=== PATIENT | female | born 1960 | race Caucasian/White ===

== ENCOUNTER 2018-10-15 08:46 | Day surgery (SDC) | payer BC ==
[2018-10-15] MEDS ORDERED: PROPOFOL 10 MG/ML VIAL IV ONE (08:47)
[2018-10-15] MEDS ORDERED: MIDAZOLAM HCL 2MG/2ML VIAL IV ONE (08:47)
[2018-10-15] MEDS ORDERED: PHENYLEPHRINE HCL 10% OPTH BTL OPTH ONE (08:47)
[2018-10-15] MEDS ORDERED: LIDOCAINE 2% MDV (20MG/ML) 20ML VIAL IV ONE ×2 (08:47)
[2018-10-15] MEDS ORDERED: EPINEPHRINE 1 MG/ML AMPUL SQ ONE (08:47)
[2018-10-15] MEDS ORDERED: TETRACAINE HCL 0.5% 15 ML OPTH BTL OPTH ONE (08:47)
[2018-10-15] MEDS ORDERED: TROPICAMIDE 1% 15ML BTL OP ONE (08:47)
[2018-10-15] MEDS ORDERED: KETOROLAC 0.5% OPTH ONE (08:47)
[2018-10-15] MEDS ORDERED: CIPROFLOXACIN HCL 0.3% OP ONE (08:47)
[2018-10-15] MEDS ORDERED: NEOMYCIN/POLY./DEXAM OPTH OINT OPTH ONE (08:47)
[2018-10-15] MEDS ORDERED: OPTH OPTH ONE (08:47)
--- NOTE | 2018-10-17 12:28 | OP NOTE CHAMES ---
DATE OF PROCEDURE: 10/15/2018. PREOPERATIVE DIAGNOSIS: Nuclear sclerotic and cortical cataract, left eye. POSTOPERATIVE DIAGNOSIS: Nuclear sclerotic and cortical cataract, left eye. OPERATION: Phacoemulsification of cataractous lens with implantation of intraocular lens. LENS IMPLANT USED: Shaq & Shaq Model PCB00 + 22.0 diopters. COMPLICATIONS: None. PROCEDURE IN DETAIL: Following a retrobulbar and facial block, the patient was prepped and draped in the usual fashion for eye surgery. A lid speculum was placed in the left eye after which a 2.4 mm tunnel wound was placed at the temporal limbus and dissected into clear cornea. A paracentesis was placed at 2 oclock hours to the left and right of the initial incision and the chamber deepened with Viscoelastic. The keratome was then used to enter the anterior chamber after which the continuous circular capsulorrhexis was accomplished without difficulty using a bent needle and a Utrata forceps. Hydrodissection and hydrodelineation of the lens was performed after which the nucleus of the lens was removed using the Phaco handpiece in the [id number] technique. The residual cortical material was irrigated and aspirated from the eye after which the bag and chamber were re-examined. The bag was re-inflated with Viscoelastic and the intraocular lens injected into the capsular bag where it centered well. The Viscoelastic was then copiously irrigated and aspirated from the eye after which the temporal tunnel wound and paracentesis were hydrated and the wounds were examined. They were noted to be watertight. The lid speculum was removed from the eye and the eye patched and shielded. The patient was transferred to the recovery room in satisfactory condition and given an appointment to be reexamined in the clinic later today or as directed by Dr. Hyatt. JOB NUMBER: [id number] [facility]
== END 2018-10-15 11:05 | disposition home or self-care (01) ==
LOC: SUR 08:46
PROVIDERS: ATTEND Ophthalmology
DX: H25.12 Age-related nuclear cataract, left eye (principal)
CPT/HCPCS: J0171

== ENCOUNTER 2018-10-29 07:05 | Day surgery (SDC) | payer BC ==
[2018-10-29] MEDS ORDERED: TETRACAINE HCL 0.5% 15 ML OPTH BTL OPTH ONE (07:06)
[2018-10-29] MEDS ORDERED: LIDOCAINE 2% MDV (20MG/ML) 20ML VIAL IV ONE ×2 (07:06)
[2018-10-29] MEDS ORDERED: NEOMYCIN/POLY./DEXAM OPTH OINT OPTH ONE (07:06)
[2018-10-29] MEDS ORDERED: PROPOFOL 10 MG/ML VIAL IV ONE (07:06)
[2018-10-29] MEDS ORDERED: EPINEPHRINE 1 MG/ML AMPUL SQ ONE (07:06)
[2018-10-29] MEDS ORDERED: CIPROFLOXACIN HCL 0.0015 GM, PHENYLEPHRINE HCL 0.05 GM, KETOROLAC TROMETHAMINE 0.000625 GM MC ONE ×5 (13:15)
--- NOTE | 2018-10-31 13:52 | OP NOTE CHAMES ---
DATE OF PROCEDURE: 10/29/2018. PREOPERATIVE DIAGNOSIS: Nuclear sclerotic cataract, right eye. POSTOPERATIVE DIAGNOSIS: Nuclear sclerotic cataract, right eye. OPERATION: Phacoemulsification of cataractous lens with implantation of intraocular lens. LENS IMPLANT USED: Shaq & Shaq Model PCB00 + 22.0 diopters. COMPLICATIONS: None. PROCEDURE IN DETAIL: Following a retrobulbar and facial block, the patient was prepped and draped in the usual fashion for eye surgery. A lid speculum was placed in the right eye after which a 2.4 mm tunnel wound was placed at the temporal limbus and dissected into clear cornea. A paracentesis was placed at 2 oclock hours to the left and right of the initial incision and the chamber deepened with Viscoelastic. The keratome was then used to enter the anterior chamber after which the continuous circular capsulorrhexis was accomplished without difficulty using a bent needle and a Utrata forceps. Hydrodissection and hydrodelineation of the lens was performed after which the nucleus of the lens was removed using the Phaco handpiece in the iubcie-xoi-lmeurol technique. The residual cortical material was irrigated and aspirated from the eye after which the bag and chamber were re-examined. The bag was re-inflated with Viscoelastic and the intraocular lens injected into the capsular bag where it centered well. The Viscoelastic was then copiously irrigated and aspirated from the eye after which the temporal tunnel wound and paracentesis were hydrated and the wounds were examined. They were noted to be watertight. The lid speculum was removed from the eye and the eye patched and shielded. The patient was transferred to the recovery room in satisfactory condition and given an appointment to be reexamined in the clinic later today or as directed by Dr. Hyatt. JOB NUMBER: [id number] [facility]
== END 2018-10-29 09:50 | disposition home or self-care (01) ==
LOC: SUR 07:05
PROVIDERS: ATTEND Ophthalmology
DX: H25.11 Age-related nuclear cataract, right eye (principal); E66.9 Obesity, unspecified
CPT/HCPCS: J0171

== ENCOUNTER 2018-10-30 01:24 | Emergency (ER) | payer BC ==
[2018-10-30] MEDS ORDERED: 0.9 % SODIUM CHLORIDE 1,000 ML BAG IV ONE (01:44)
[2018-10-30] MEDS ORDERED: ONDANSETRON HCL IV 4 MG/2 ML VIAL IV ONE (01:44)
[2018-10-30] MEDS ORDERED: HYDROMORPHONE HCL 2 MG/ML VIAL IVP ONE ×3 (01:46→08:51)
[2018-10-30 01:53] LABS: HEMATOCRIT 43.5 % (35.0-47.0); HEMOGLOBIN 13.8 gm/dl (11.6-16.0); MEAN CELL VOLUME 95.4 fl (81-97); MEAN CORPUSCULAR HEMOGLOBIN 30.3 pg (27-33); MEAN CORPUSCULAR HGB CONC 31.7 g/dl (32-36); MEAN PLATELET VOLUME 10.1 fl (7.4-10.4); PLATELET COUNT 192 K/uL (130-400); RED BLOOD COUNT 4.56 M/uL (3.80-5.40); RED CELL DISTRIBUTION WIDTH 13.8 % (11.5-14.5); WHITE BLOOD COUNT W/O DIFF 6.4 K/uL (4.2-12.2)
--- NOTE | 2018-10-30 01:55 | Emergency Department Record ---
History of Present Illness - General Source: Patient Mode of Arrival: Ambulatory Limitations: No limitations - History of Present Illness Initial Comments: pt has ruq pain similar to when she had problems with her gb. she didnt have it removed. she has n/v. she has tortelini for dinner. she had cataract surgery yesterday MD Complaint: Abdominal pain Onset/Timin -: Hour(s) Location: Epigastric, RUQ Severity: Severe Severity scale (1-10): 8 Quality: Fullness Consistency: Constant Improves With: Nothing Worsens With: Nothing Associated Symptoms: Diarrhea, Nausea - Related Data Patient : No Hx Age of Menopause: 53 <Nancy Villanueva - Last Filed: 10/30/18 06:28> <RONALD KAISER - Last Filed: 10/30/18 08:36> - General Chief Complaint: Abdominal Pain Stated Complaint: ABDOMINAL PAIN Time Seen by Provider: 10/30/18 01:32 - Related Data Allergies Allergy/AdvReac Type Severity Reaction Status Date / Time No Known Drug Allergies Allergy Unverified 10/22/18 10:05 Travel Screening - Travel/Exposure Within Last 30 Days Have you traveled within the last 30 days?: No <Nancy Villanueva - Last Filed: 10/30/18 06:28> Review of Systems Reviewed: No additional complaints except as noted below Constitutional: Reports: As per HPI. Denies: Chills, Fever, Malaise, Night sweats, Weakness, Weight change Eyes: Reports: As per HPI. Denies: Eye discharge, Eye pain, Photophobia, Vision change ENT: Reports: As per HPI. Denies: Congestion, Dental pain, Ear pain, Epistaxis , Hearing loss, Throat pain Respiratory: Reports: As per HPI. Denies: Cough, Dyspnea, Hemoptysis, Stridor, Wheezes Cardiovascular: Reports: As per HPI. Denies: Arrhythmia, Chest pain, Dyspnea on exertion, Edema, Murmurs, Orthopnea, Palpitations, Paroxysmal nocturnal dyspnea, Rheumatic Fever, Syncope Endocrine: Reports: As per HPI. Denies: Fatigue, Heat or cold intolerance, Polydipsia, Polyuria Gastrointestinal: Reports: As per HPI, Abdominal pain, Diarrhea, Nausea, Vomiting. Denies: Constipation, Hematemesis, Hematochezia, Melena Genitourinary: Reports: As per HPI. Denies: Abnormal menses, Discharge, Dyspareunia, Dysuria, Frequency, Hematuria, Incontinence, Retention, Urgency Musculoskeletal: Reports: As per HPI. Denies: Arthralgia, Back pain, Gout, Joint swelling, Myalgia, Neck pain Skin: Reports: As per HPI. Denies: Bruising, Change in color, Change in hair/ nails, Lesions, Pruritus, Rash Neurological: Reports: As per HPI. Denies: Abnormal gait, Confusion, Headache, Numbness, Paresthesias, Seizure, Tingling, Tremors, Vertigo, Weakness Psychiatric: Reports: As per HPI. Denies: Anxiety, Auditory hallucinations, Depression, Homicidal thoughts, Suicidal thoughts, Visual hallucinations Hematological/Lymphatic: Reports: As per HPI. Denies: Anemia, Blood Clots, Easy bleeding, Easy bruising, Swollen glands <Nancy Villanueva - Last Filed: 10/30/18 06:28> Past Medical History - SOCIAL HISTORY Smoking Status: Former smoker Alcohol Use: None Drug Use: None - RESPIRATORY Hx Respiratory Disorders: No - CARDIOVASCULAR Hx Cardio Disorders: Yes Hx Hypotension: Yes (sometimes runs low) - NEURO Hx Neuro Disorders: No - GI Hx GI Disorders: No - Hx Genitourinary Disorders: No - ENDOCRINE Hx Endocrine Disorders: No - MUSCULOSKELETAL Hx Musculoskeletal Disorders: Yes - PSYCH Hx Psych Problems: No - HEMATOLOGY/ONCOLOGY Hx Hematology/Oncology Disorders: No <Nancy Villanueva - Last Filed: 10/30/18 06:28> Family Medical History Any Significant Family History?: Yes Hx Cancer: Brother/Sister, Grandparents Hx Dementia: Grandparents Hx Diabetes: Mother, Brother/Sister, Grandparents Hx Heart Disease: Father, Mother, Brother/Sister, Grandparents Hx HTN: Mother Hx Resp Disorders: Father *Resp Comment: COPD Hx Stroke: Mother <Nancy Villanueva - Last Filed: 10/30/18 06:28> Physical Exam - General General Appearance: Alert, Oriented x3, Cooperative, Mild distress - Head Head exam: Normal inspection - Eye Eye exam: Normal appearance, PERRL, EOMI Pupils: Normal accommodation - ENT ENT exam: Normal exam, Mucous membranes moist, Normal external ear exam, Normal orophraynx Ear exam: Normal external inspection. negative: External canal tenderness Nasal Exam: Normal inspection. negative: Discharge, Sinus tenderness Mouth exam: Normal external inspection, Tongue normal Teeth exam: Normal inspection. negative: Dental caries Throat exam: Normal inspection. negative: Tonsillar erythema, Tonsillar exudate - Neck Neck exam: Normal inspection, Full ROM. negative: Tenderness - Respiratory Respiratory exam: Normal lung sounds bilaterally. negative: Respiratory distress - Cardiovascular Cardiovascular Exam: Regular rate, Normal rhythm, Normal heart sounds - GI/Abdominal GI/Abdominal exam: Soft, Normal bowel sounds, Tenderness (ruq) - Rectal Rectal exam: Deferred - exam: Deferred - Extremities Extremities exam: Normal inspection, Full ROM, Normal capillary refill. negative: Tenderness - Back Back exam: Reports: Normal inspection, Full ROM. Denies: Muscle spasm, Rash noted, Tenderness - Neurological Neurological exam: Alert, CN II-XII intact, Normal gait, Oriented X3 - Psychiatric Psychiatric exam: Normal affect, Normal mood - Skin Skin exam: Dry, Intact, Normal color, Warm <Nancy Villanueva - Last Filed: 10/30/18 06:28> Course Vital Signs 10/30/18 01:27 Temperature 97.8 F Pulse Rate 65 Respiratory 20 Rate Blood Pressure 138/89 Pulse Ox 97 - Reevaluation(s) Reevaluation #1: 10/30/18 02:42 ct shows cholelithiasis and cannot rule out malignancy. us recommended. will do us at 0730 Reevaluation #2: 10/30/18 06:24 pt rested Reevaluation #3: 10/30/18 06:28 d/w dr perez. care turned over to dr kaiser who will call dr perez w results of us <aNncy Villanueva L - Last Filed: 10/30/18 06:28> Vital Signs 10/30/18 10/30/18 10/30/18 01:27 03:54 06:51 Temperature 97.8 F Pulse Rate 65 Pulse Rate [ 54 L 62 Pulse Ox Probe] Respiratory 20 12 12 Rate Blood Pressure 138/89 Blood Pressure 96/57 102/67 [Right Arm] Pulse Ox 97 93 L 92 L - Reevaluation(s) Reevaluation #4: 10/30/18 07:41 The patient returned from US. She reports her pain is tolerable at 4/10. The chart was reviewed, CT reviewed, labs reviewed. Awaiting the US report and will discuss again with Dr Perez. 10/30/18 08:17 The US was reviewed. A shadow line was noted at the GB fundus likely indicating a stone filled GB. Dr Perez paged to discuss the updated information. 10/30/18 08:35 Dr Perez accepts the patient for transfer to [facility] for further management <RONALD KAISER - Last Filed: 10/30/18 08:36> Medical Decision Making - Lab Data Result diagrams: 10/30/18 01:40 10/30/18 01:40 <Nancy Villanueva - Last Filed: 10/30/18 06:28> - Lab Data Result diagrams: 10/30/18 01:40 10/30/18 01:40 Lab Results 10/30/18 10/30/18 Range/Units 01:40 01:40 WBC 6.4 (4.2-12.2) K/uL RBC 4.56 (3.80-5.40) M/uL Hgb 13.8 (11.6-16.0) gm/dl Hct 43.5 (35.0-47.0) % MCV 95.4 (81-97) fl MCH 30.3 (27-33) pg MCHC 31.7 L (32-36) g/dl RDW 13.8 (11.5-14.5) % Plt Count 192 (130-400) K/uL MPV 10.1 (7.4-10.4) fl Neutrophils % 39.0 L (47-80) % Band Neutrophils % 0.0 (0-5) % Eosinophils % Not Reportable Basophils % Not Reportable Lymphocytes 53.0 H (16-45) % Monocytes 7.0 (0-9) % Basophils 0.0 (0-6) % Eosinophil Count 1.0 (0-6) % Sodium 140 (136-145) mmol/L Potassium 4.0 (3.4-4.5) mmol/L Chloride 101 (98-107) mmol/L Carbon Dioxide 26.0 (22-29) mmol/L Anion Gap 13.0 (7-16) BUN 15 (8-23) mg/dL Creatinine 1.1 H (0.5-0.9) mg/dL Estimated GFR 54 mL/min Random Glucose 145 H (74-109) mg/dL Calcium 9.3 (8.8-10.2) mg/dL Total Bilirubin 0.20 (0.2-1.0) mg/dL AST 103 H (10.0-35.0) U/L ALT 53 H (<33) U/L Alkaline Phosphatase 88 (35-104) U/L Total Protein 6.9 (6.6-8.7) g/dL Albumin 4.2 (4.0-5.0) g/dL Globulin 2.7 (1.4-4.8) gm/dL Albumin/Globulin Ratio 1.6 (1.1-1.8) Lipase 26 (13-60) U/L <RONALD KAISER - Last Filed: 10/30/18 08:36> Disposition <Nancy Villanueva - Last Filed: 10/30/18 06:28> Disposition: Transfer Transfer To: [facility] Reason For Transfer: Biliary Colic Accepting Physician: Basilio Time Discussed w/Accepting Physician: 08:36 Time of Disposition: 08:36 <RONALD KAISER - Last Filed: 10/30/18 08:36> Clinical Impression: Biliary colic Disposition: Acute Care Hospital Transfer Condition: (1) Good Forms: Patient Portal Access Quality - Blood Pressure Screening Does Patient Have Any of the Following: No Blood Pressure Classification: Pre-Hypertensive BP Reading Systolic Measurement: 138 Diastolic Measurement: 89 Screening for High Blood Pressure: < Pre-Hypertensive BP, F/U Documented > [ G8950] <Nancy Villanueva - Last Filed: 10/30/18 06:28> - Quality Measures Quality Measures: N/A - Blood Pressure Screening Does Patient Have Any of the Following: No Blood Pressure Classification: Pre-Hypertensive BP Reading Systolic Measurement: 138 Diastolic Measurement: 89 Screening for High Blood Pressure: < Pre-Hypertensive BP, F/U Documented > [ G8950] <RONALD KAISER - Last Filed: 10/30/18 08:36>
[2018-10-30 02:02] LABS: CREATININE 1.1 mg/dL (0.5-0.9)
[2018-10-30 02:03] LABS: BILIRUBIN,TOTAL 0.2 mg/dL (0.2-1.0); TOTAL PROTEIN 6.9 g/dL (6.6-8.7)
[2018-10-30 02:08] LABS: ALB/GLOB RATIO 1.6 (1.1-1.8); ALBUMIN 4.2 g/dL (4.0-5.0)
[2018-10-30] MEDS ORDERED: ONDANSETRON HCL IV 4 MG/2 ML VIAL IVP ONE (02:32)
[2018-10-30] MEDS ORDERED: 0.9 % SODIUM CHLORIDE 1000ML 1,000 ML IV PRN (02:41)
[2018-10-30 07:55] LABS: URINE APPEARANCE CLEAR; URINE BILIRUBIN NEGATIVE (NEGATIVE); URINE BLOOD NEGATIVE (NEGATIVE); URINE COLOR YELLOW; URINE GLUCOSE (UA) NEGATIVE (NEGATIVE); URINE KETONE TRACE (NEGATIVE); URINE LEUKOCYTE ESTERASE NEGATIVE (NEGATIVE); URINE NITRITE NEGATIVE (NEGATIVE); URINE PROTEIN NEGATIVE (NEGATIVE); URINE UROBILINOGEN 0.2 E.U./dL (0.20 - 1.00)
--- NOTE | 2018-11-03 06:25 | ULTRASOUND REPORT ---
EXAM: ULTRASOUND OF THE ABDOMEN COMPLETE HISTORY: CHOLELITHIASIS. RIGHT UPPER ABDOMINAL PAIN. TECHNIQUE: Routine ultrasound examination of the abdomen was obtained. Comparison: Abdominal ultrasound dated 06/10/11. CT of the abdomen and pelvis without contrast dated 10/30/18. FINDINGS: The pancreatic neck and body are visualized and without focal abnormality. The pancreatic head and tail are obscured by overlying bowel gas. The abdominal aorta is without aneurysmal dilatation and the intrahepatic IVC is patent. The liver to the extent visualized is homogeneous in echotexture. No hepatic mass. No intra nor extrahepatic biliary ductal dilatation with the common hepatic duct measuring 3 mm. There is a wall echo shadow sign at the level of the gallbladder fossa likely relating to a stone filled gallbladder. There is a negative sonographic Butler's sign. The spleen is not enlarged and is homogeneous in echotexture. Screening evaluation of the kidneys does not demonstrate hydronephrosis nor mass with the right kidney measuring 9 cm in length and the left kidney measuring 10 cm in length. IMPRESSION: WALL ECHO SHADOW SIGN AT THE LEVEL OF THE GALLBLADDER FOSSA LIKELY RELATING TO A STONE FILLED CONTRACTED GALLBLADDER THOUGH THE GALLBLADDER LUMEN IS NOT VISUALIZED. NEGATIVE SONOGRAPHIC BUTLER'S SIGN. NO BILIARY DUCTAL DILATATION. JOB NUMBER: [id number] [facility]
--- NOTE | 2018-11-03 06:34 | CT SCAN REPORT ---
DATE: 10/30/2018 at 0207. EXAM: CT OF THE ABDOMEN AND PELVIS WITHOUT CONTRAST. HISTORY: Epigastric abdominal pain. Nausea and diarrhea. Right upper quadrant pain. TECHNIQUE: Thin-collimation helical CT examination of the abdomen and pelvis was performed without oral or intravenous contrast administration. Lack of oral and intravenous contrast utilization limits evaluation of the bowel and solid viscera, respectively. COMPARISON: None. FINDINGS: There are calcified lymph nodes in the visualized inferior right hilum. There is an associated calcified nodule in the medial segment of the right middle lobe measuring 5.0 mm. These findings are consistent with healed granulomatous disease. There is mild dependent atelectasis in each lung base. The lung bases are otherwise clear, and there is no pleural or pericardial effusion. The heart is not enlarged. Punctate calcifications are scattered within an otherwise normal-appearing spleen consistent with healed granulomatous disease. The liver, pancreas, and adrenal glands are normal in appearance. There is a small, sliding-type hiatal hernia. The gallbladder is stone filled or less likely there is a thickened, calcified gallbladder wall. No biliary ductal dilatation is seen. No pericholecystic fluid. The kidneys are normal in size and position, and they are smoothly marginated. No nephrolithiasis, renal mass, nor obstructive uropathy. No intra-abdominal nor retroperitoneal lymphadenopathy. There is minimal haziness of the central mesenteric fat with small, scattered lymph nodes. This is nonspecific but likely postinflammatory. There is mild, diffuse atherosclerosis without aneurysmal dilatation of the abdominal aorta nor iliac arteries. Evaluation of the inferior pelvis is limited by departing artifact from right hip prosthesis. No convincing pelvic mass, lymphadenopathy, or free pelvic fluid. The ovaries are not enlarged. The uterus is in the midline. The urinary bladder is not optimally visualized. To the extent visualized, it is without focal abnormality. No gross bowel dilatation nor bowel wall thickening. The appendix is visualized and is normal in appearance. No lytic or blastic bone lesion. S-shaped thoracolumbar scoliosis is present associated with multilevel degenerative changes. Total right hip arthroplasty changes. Mild degenerative changes of the left hip. IMPRESSION: 1. HEALED GRANULOMATOUS DISEASE IN THE RIGHT HEMITHORAX AND SPLEEN. 2. SMALL HIATAL HERNIA. 3. STONE-FILLED GALLBLADDER VERSUS THICKENED, CALCIFIED GALLBLADDER WALL. UNDERLYING MASS IS NOT ENTIRELY EXCLUDED. NO PERICHOLECYSTIC FLUID OR BILIARY DUCTAL DILATATION IS, HOWEVER, SEEN. FURTHER EVALUATION WITH ULTRASOUND EXAMINATION MAY BE OF BENEFIT. 4. MINOR HAZINESS OF CENTRAL MESENTERIC FAT IS NONSPECIFIC BUT LIKELY INFLAMMATORY/POSTINFLAMMATORY. 5. NOT MENTIONED ABOVE IS DIVERTICULOSIS OF THE DISTAL COLON WITHOUT EVIDENCE OF DIVERTICULITIS. NORMAL APPENDIX. Job Number: [id number] [facility]
== END 2018-10-30 09:08 | disposition short-term general hospital (02) ==
LOC: ER 01:24
DX: K80.20 Calculus of gallbladder without cholecystitis without obstruction (principal); R19.7 Diarrhea, unspecified; R11.0 Nausea
CPT/HCPCS: 99285 ×2; 96376; 96374; 96375; 96361; 83690; 80053; 81003; 85027; 76700; 74176; J2405; J1170; J7030

== ENCOUNTER 2018-12-11 05:26 | Day surgery (SDC) | payer BC ==
[2018-12-11] MEDS ORDERED: SEVOFLURANE 250 ML INH ONE (05:27)
[2018-12-11] MEDS ORDERED: PROPOFOL 10 MG/ML VIAL IV ONE (05:27)
[2018-12-11] MEDS ORDERED: ONDANSETRON HCL IV 4 MG/2 ML VIAL IVP ONE (05:27)
[2018-12-11] MEDS ORDERED: HYDROMORPHONE HCL 2 MG/ML VIAL IV ONE (05:27)
[2018-12-11] MEDS ORDERED: LIDOCAINE 2% MDV (20MG/ML) 20ML VIAL IV ONE (05:27)
[2018-12-11] MEDS ORDERED: KETAMINE HCL 100MG/1ML VIAL INJ ONE (05:27)
[2018-12-11] MEDS ORDERED: GLYCOPYRROLATE 0.2 MG/ML ML IV ONE (05:27)
[2018-12-11] MEDS ORDERED: EPHEDRINE SULFATE 50 MG/ML ML IV ONE (05:27)
[2018-12-11] MEDS ORDERED: CEFAZOLIN 2 Gram 2 GM/50 ML BAG IVPB ONE (06:00)
[2018-12-11] MEDS ORDERED: RINGERS SOLUTION,LACTATED 1,000 ML IV ONE ×2 (06:00→07:59)
[2018-12-11] MEDS ORDERED: ACETAMINOPHEN 1,000 MG/100 ML BTL IVPB ONE (06:00)
[2018-12-11] MEDS ORDERED: LIDOCAINE 2% MDV (20MG/ML) 20ML VIAL SQ ONE (07:57)
[2018-12-11] MEDS ORDERED: BUPIVACAINE 0.5% (5MG/ML) PF 30ML VIAL SQ ONE (07:57)
--- NOTE | 2018-12-15 16:30 | Operative Note ---
DATE OF SERVICE: 12/11/2018. DATE OF SURGERY: 12/11/2018. PREOPERATIVE DIAGNOSES: 1. Painful bunion. 2. 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 POSTOPERATIVE DIAGNOSES: 1. Painful bunion. 2. 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 OPERATION: Mekhi bunionectomy, left foot, with internal screw fixation, hammertoe repair with K-wire fixation, 2nd digit, left foot, shortening 2nd metatarsal osteotomy with screw fixation, left foot. SURGEON: Alexy Iniguez DPM. ANESTHESIA: General with preoperative block. INDICATION: Patient with painful bunion, severe hammertoe, and long 2nd metatarsal, left foot, not responsive to previous conservative care, requiring surgical intervention. X-ray consistent with significant bunion deformity, overlapping 2nd hammertoe deformity, left, and long 2nd metatarsal. PROCEDURE: Patient was brought in the OR suite and placed supine upon the OR table. After successful general anesthesia instituted, the left bunion and 2nd ray were blocked with approximately 30 mL of a 50:50 mixture of 1% lidocaine plain and 0.5% Marcaine plain after alcohol prep. Padding put over left ankle. Pneumatic cuff put in place. The left foot, ankle, and distal leg were prepped and draped in the usual sterile manner. The foot and ankle were exsanguinated with an Esmarch, and the tourniquet was raised to 250 mmHg. Incision outline then made to the bunion deformity on the left 1st metatarsophalangeal joint. Linear incision made, approximately 4 cm in length. Sharp and blunt dissection utilized to deepen the incision. All vital structures identified and retracted without difficulty. Inverted-L capsulotomy performed and reflected, exposing large bony prominence medially, which was removed with the power sagittal saw, cooled with saline, maintaining a plantar sagittal groove. Sharp and blunt dissection was utilized to deepen the incision to the 1st interspace. Lateral capsulotomy performed. The ligament between the fibular sesamoid and the 1st metatarsal head isolated and released, and the deep intermetatarsal transverse ligament isolated and cut, and the extensor hallucis brevis tendon isolated and cut. This allowed for appropriate soft tissue release. A 0.045 K-wire was then drive under C-arm guidance medially to laterally, centrally through the 1st metatarsal head, perpendicular to the 2nd metatarsal, slightly plantar flexed. The plantar and dorsal ostium cuts were made without difficulty with the power sagittal saw, cooled with saline. Water removed. Capital fragment transposed approximately 3-4 mm laterally and temporarily fixated with 2 wires from the Osteomed set under C- arm guidance. These wires measured at 16 mm in length. Wires driven deeper, and proximal cortices drilled. Two 2.4 x 16 mm in length, headless, cannulated Osteomed screws driven in typical cannulated fashion. C-arm indicated appropriate length of screws, good fspt-[id number] contact with reduction of 1st intermetatarsal angle. Wires removed. The shelf of bone proximally, medially to the metatarsal shaft was removed with the power sagittal saw, cooled with saline. There was adequate reduction of the bunion deformity, and no Laron osteotomy required. Attention was then directed to the 2nd metatarsal and 2nd digit. A linear incision was outlined and made, starting at the distal 1/3 of the 2nd metatarsal shaft, ending at the distal interphalangeal joint. Sharp and blunt dissection utilized to deepen the incision. All vital structures identified and retracted without difficulty. Extensor tenotomy and capsulotomy and collaterals were released at the proximal interphalangeal joint. The extensor wing and sling at the MPJ were released on both sides. There was still contracture at the 2nd MPJ. Therefore, a mediolateral and dorsal capsulotomy was performed to the capsule. Adjacent surfaces of the proximal interphalangeal joint were removed with the power sagittal saw, cooled with saline, parallel to each other and perpendicular to the weightbearing surface. There was still some contraction noted to the digit, and therefore a 2nd shortening metatarsal osteotomy was performed after a dorsal T-capsulotomy performed and reflected, exposing the distal head of the 2nd metatarsal. The shortening metatarsal was performed from a distal dorsal to proximal plantar fashion, cooled with saline. The 2nd metatarsal head decompressed proximally and temporarily fixated with a wire from the Osteomed set. The distal dorsal shelf of bone to the metatarsal was removed with a rongeur. The proximal cortex was drilled. One 2.0 x 12 mm headed, cannulated Osteomed screw was driven in typical fashion without difficulty. Good asba-[id number]-yydt contact, compression noted. Screw appropriate length, per C-arm. This allowed for decompression of the 2nd metatarsophalangeal joint with corrected positioning to the 2nd digit. A 0.045 K-wire was then drive through the base of the middle phalanx at the distal aspect of the digit and retrograded back into the proximal phalanx under C-arm guidance across the MPJ. Corrected position noted to the entire 2nd ray. Good drly-nl-mmsp contact noted at the DIPJ. Capsulorrhaphy performed to the 1st metatarsophalangeal joint. Wounds were flushed with copious amounts of sterile saline. Capsules, extensor tendons, and subcu were closed in simple, interrupted fashion with 3-0 Vicryl and 4-0 Vicryl. Skin to the bunion was closed in subcuticular, continuous fashion with 5-0 PDS, reinforced with 4-0 nylon. The incision to the 2nd digit was closed in simple, interrupted fashion with 3-0 and 4-0 nylon. K-wire was cut, bent, and capped. Sterile Xeroform, Adaptic, 4 x 4s, 4-inch Maribel, and Marco wrap were applied. Tourniquet deflated to 0 mmHg. Hyperemic flush noted to all digits. Patient tolerated the procedure well and was transferred to recovery room in stable condition. She is to minimize ambulation, keep extremity elevated, take pain medication as needed, contact me by cellphone as needed. She is to utilize a CAM walker and crutches and minimize pressures to left foot. She is to follow up in the office in the next several days. DIANA
== END 2018-12-11 10:25 | disposition home or self-care (01) ==
LOC: SUR 05:26
PROVIDERS: ATTEND Podiatrist
DX: M21.612 Bunion of left foot (principal); M20.42 Other hammer toe(s) (acquired), left foot; M77.42 Metatarsalgia, left foot
CPT/HCPCS: 28296; 28285; 28308; 01480; C1769; J2405; J1170; J0690; J3490; J7120